=== PATIENT | male | born 1990 | race Caucasian/White ===

== ENCOUNTER 2018-03-10 21:46 | Emergency (ER) | payer BC ==
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
--- NOTE | 2018-03-11 09:23 | Diagnostic Imaging Report ---
Left knee 3 views Indication: Trauma Comparison: Right knee x-rays the same day Findings: Osteopenia is suspected. The joint spaces are preserved. No evidence of an acute fracture or joint effusion. No focal soft tissue swelling. Impression: No evidence of an acute fracture. Osteopenia suspected. In the setting of trauma, if clinical symptoms persist and there is continued concern for an occult fracture, follow up exams in 5-7 days is suggested.
== END 2018-03-10 23:15 | disposition home or self-care (01) ==
LOC: ER 21:46
DX: S83.91XA Sprain of unspecified site of right knee, initial encounter (principal); S83.92XA Sprain of unspecified site of left knee, initial encounter; Z88.5 Allergy status to narcotic agent; Z88.2 Allergy status to sulfonamides; Z88.1 Allergy status to other antibiotic agents; V03.90XA Pedestrian on foot injured in collision with car, pick-up truck or van, unspecified whether traffic or nontraffic accident, initial encounter; Y93.89 Activity, other specified; Y92.89 Other specified places as the place of occurrence of the external cause; Y99.8 Other external cause status
CPT/HCPCS: 73562-TC-LT; 73562-TC-RT; Z7502